=== PATIENT | female | born 1980 | race African-American/Black ===

== ENCOUNTER 2017-04-12 13:21 | Emergency (ER) | payer OTHER ==
[~2017-04-12] VITALS: Ht 162.6 cm; Wt 81.6 kg
--- NOTE | 2017-04-12 14:33 | PHYS DOC ---
Past Medical History Past Medical History: No Pertinent History Past Surgical History: Tubal ligation Alcohol Use: None Drug Use: None Adult General Chief Complaint Chief Complaint: ABDOMINAL PAIN HPI HPI Patient is a 36 year old female presents the ED complaining of lower abdominal cramping 2 days. Patient states she started her period 2 days ago. Complains of heavy bleeding. History of dysmenorrhea. States she recently had a tubal ligation a few months ago. Describes the pain as cramping. Rates the pain as 8 out of 10. Associated symptoms include one episode of vomiting. Denies weakness , dizziness, chest pain, shortness of breath, dizziness or syncope. Review of Systems Review of Systems Constitutional: Denies fever or chills [] Eyes: Denies change in visual acuity, redness, or eye pain [] HENT: Denies nasal congestion or sore throat [] Respiratory: Denies cough or shortness of breath [] Cardiovascular: No additional information not addressed in HPI [] GI: Complains of abdominal pain, nausea, vomiting. Denies bloody stools or diarrhea [] : Denies dysuria or hematuria [] Musculoskeletal: Denies back pain or joint pain [] Integument: Denies rash or skin lesions [] Neurologic: Denies headache, focal weakness or sensory changes [] Endocrine: Denies polyuria or polydipsia [] All other systems were reviewed and found to be within normal limits, except as documented in this note. Allergies Allergies Allergies Coded Allergies Type Severity Reaction Last Updated Verified No Known Drug Allergies 10/31/13 No Physical Exam Physical Exam Constitutional: Well developed, well nourished, no acute distress, non-toxic appearance. [] HENT: Normocephalic, atraumatic, bilateral external ears normal, oropharynx moist, no oral exudates, nose normal. [] Eyes: PERRLA, EOMI, conjunctiva normal, no discharge. [] Neck: Normal range of motion, no tenderness, supple, no stridor. [] Cardiovascular:Heart rate regular rhythm, no murmur [] Lungs & Thorax: Bilateral breath sounds clear to auscultation [] Abdomen: Bowel sounds normal, soft, MILD SUPRAPUBIC TENDERNESS. NO MURPHYS OR MCBURNEYS TENDERNESS. no masses, no pulsatile masses. [] Skin: Warm, dry, no erythema, no rash. [] Back: No tenderness, no CVA tenderness. [] Extremities: No tenderness, no cyanosis, no clubbing, ROM intact, no edema. [] Neurologic: Alert and oriented X 3, normal motor function, normal sensory function, no focal deficits noted. [] Psychologic: Affect normal, judgement normal, mood normal. [] Current Patient Data Vital Signs Vital Signs Date Time Temp Pulse Resp B/P (MAP) Pulse Ox O2 Delivery O2 Flow Rate FiO2 04/12/17 15:32 76 14 119/66 (83) 100 Room Air 04/12/17 13:30 97.9 97.9 Lab Values Laboratory Tests Test 04/12/17 13:10 04/12/17 13:39 04/12/17 14:31 Urine Collection Type Unknown Urine Color Dia Urine Clarity Clear Urine pH 6.0 Urine Specific [place] >=1.030 Urine Protein 30 mg/dL (NEG-TRACE) Urine Glucose (UA) Negative mg/dL (NEG) Urine Ketones (Stick) Negative mg/dL (NEG) Urine Blood Large (NEG) Urine Nitrite Negative (NEG) Urine Bilirubin Negative (NEG) Urine Urobilinogen Dipstick 0.2 mg/dL (0.2 mg/dL) Urine Leukocyte Esterase Negative (NEG) Urine RBC >40 /HPF (0-2) Urine WBC 1-4 /HPF (0-4) Urine Squamous Epithelial Cells Mod /LPF Urine Bacteria Moderate /HPF (0-FEW) Urine Mucus Mod /LPF POC Urine HCG, Qualitative Hcg negative (Negative) White Blood Count 4.9 x10^3/uL (4.0-11.0) Red Blood Count 4.59 x10^6/uL (3.50-5.40) Hemoglobin 13.1 g/dL (12.0-15.5) Hematocrit 40.0 % (36.0-47.0) Mean Corpuscular Volume 87 fL (79-100) Mean Corpuscular Hemoglobin 29 pg (25-35) Mean Corpuscular Hemoglobin Concent 33 g/dL (31-37) Red Cell Distribution Width 14.2 % (11.5-14.5) Platelet Count 269 x10^3/uL (140-400) Sodium Level 141 mmol/L (136-145) Potassium Level 4.0 mmol/L (3.5-5.1) Chloride Level 106 mmol/L (98-107) Carbon Dioxide Level 30 mmol/L (21-32) Anion Gap 5 (6-14) L Blood Urea Nitrogen 18 mg/dL (7-20) Creatinine 0.9 mg/dL (0.6-1.0) Estimated GFR (Cockcroft-Gault) 84.8 BUN/Creatinine Ratio 20 (6-20) Glucose Level 107 mg/dL (70-99) H Calcium Level 8.7 mg/dL (8.5-10.1) Total Bilirubin 0.3 mg/dL (0.2-1.0) Aspartate Amino Transferase (AST) 19 U/L (15-37) Alanine Aminotransferase (ALT) 19 U/L (14-59) Alkaline Phosphatase 92 U/L (46-116) Total Protein 7.3 g/dL (6.4-8.2) Albumin 3.4 g/dL (3.4-5.0) Albumin/Globulin Ratio 0.9 (1.0-1.7) L Laboratory Tests 04/12/17 14:31 Laboratory Tests 04/12/17 14:31 EKG EKG [] Radiology/Procedures Radiology/Procedures [] Course & Med Decision Making Course & Med Decision Making Pertinent Labs and Imaging studies reviewed. (See chart for details) []Discussed imaging and lab findings with patient. Patient's pain resolved. States she is feeling much better. On, Reexamination, abdomen is soft nontender nondistended. No peritoneal signs. States she has follow-up with her [employer] on Wednesday. Will prescribe analgesics. Discussed the importance of follow-up and reasons to return to the ED. Patient understands and agrees with plan. Dragon Disclaimer Dragon Disclaimer This electronic medical record was generated, in whole or in part, using a voice recognition dictation system. Departure Departure Impression: Primary Impression: Ovarian cyst Additional Impression: Dysmenorrhea Disposition: 01 HOME, SELF-CARE Condition: IMPROVED Referrals: XOCHITL EDWARDS MD (PCP) ANTONIO BECKER MD Patient Instructions: Dysmenorrhea, Ovarian Cyst Scripts Naproxen (NAPROSYN) 500 Mg Tablet 1 TAB PO BID, #20 TAB 1 Refill Prov: DIONNE VIERA 04/12/17 Hydrocodone/Apap 5-325 (NORCO 5-325 TABLET) 1 Each Tablet 1 TAB PO TID, #8 TAB Prov: DIONNE VIERA 04/12/17 Problem Qualifiers DIONNE VIERA Apr 12, 2017 14:33
[2017-04-12 14:35] LABS: BILIRUBIN,URINE NEGATIVE (NEG); GLUCOSE,URINE NEGATIVE (NEG); NITRITE,URINE NEGATIVE (NEG); PROTEIN,URINE 30 mg/dL (NEG-TRACE); UROBILINOGEN,URINE 0.2 mg/dL (0.2 mg/dL)
[2017-04-12 14:38] LABS: HEMOGLOBIN 13.1 g/dL (12.0-15.5); RED BLOOD COUNT 4.59 x10^6/uL (3.50-5.40); RED CELL DISTRIBUTION WIDTH 14.2 % (11.5-14.5); WHITE BLOOD COUNT 4.9 x10^3/uL (4.0-11.0)
[2017-04-12 14:48] LABS: BACTERIA,URINE MODERATE /HPF (0-FEW); RBC,URINE >40 /HPF (0-2); SQUAMOUS EPITHELIAL CELL,UR MOD /LPF
[2017-04-12 14:48] LABS: CALCIUM 8.7 mg/dL (8.5-10.1); CREATININE 0.9 mg/dL (0.6-1.0); GFR 84.8
[2017-04-12 14:54] LABS: ALBUMIN 3.4 g/dL (3.4-5.0); TOTAL PROTEIN 7.3 g/dL (6.4-8.2)
[2017-04-12 14:55] LABS: ALBUMIN/GLOBULIN RATIO 0.9 (1.0-1.7); TOTAL BILIRUBIN 0.3 mg/dL (0.2-1.0)
[2017-04-12 15:32] VITALS: BP 119/66
--- NOTE | 2017-04-12 16:15 | RAD ---
Indication: Pelvic pain. Technique: Transabdominal and transvaginal imaging was performed. No comparison is available. Findings: Uterus measures 8.4 x 4.7 x 5.6 cm in size. Endometrial stripe measures 7 mm. No uterine lesion is identified. Both ovaries are visualized with color flow and waveform documented. 13 mm complex cyst in the right ovary is noted. There is no free pelvic fluid. There are increased vessels within the pelvis bilaterally. Impression: 1. No evidence of adnexal torsion or mass. 2. Increased vascularity within the adnexa bilaterally, correlate with any concern for pelvic congestion.
[2017-04-12] MEDS ORDERED: NAPR500T PO (16:57)
[2017-04-12] MEDS ORDERED: HYDR-971 PO (16:57)
--- NOTE | 2017-04-15 12:05 | VNOTE ---
CALL BACK NOTE CALL BACK Microbiology 04/12/17 Urine Culture - Final, Complete 04/12/17 Urine Culture Result 1 (MORAIMA) - Final, Complete 04/12/17 Antimicrobic Susceptibility - Final, Complete Patient was notified at her home number [phone] she was provided the information that the urine was positive for urinary tract infection. She has requested that a prescription based cold to the [facility]. Bactrim DS was called. Recommended Bactrim DS one tablet twice a day 3 days with a total of 6 provided for her. No refills. REED YUN APRN Apr 15, 2017 12:05
== END 2017-04-12 17:03 | disposition home or self-care (01) ==
LOC: ER 13:21
DX: N83.201 Unspecified ovarian cyst, right side (principal); N94.6 Dysmenorrhea, unspecified
CPT/HCPCS: 36415; 76830; 76856; 80053; 81001; 81025; 85027; 87086; 99285-25

== ENCOUNTER 2017-06-21 11:55 | Emergency (ER) | payer OTHER ==
[2017-06-21 13:57] LABS: ADD MAN DIFF? NO
[2017-06-21] MEDS: fentaNYL PF VIAL 100 MCG/2 ML VIAL IV ×6 (13:57→17:16)
[2017-06-21] MEDS: ONDANSETRON PF 4 MG/2 ML VIAL. IV ×2 (13:57)
[2017-06-21] MEDS: IV NORMAL SALINE 1000ML BAG 1,000 ML IV ×2 (14:00)
[2017-06-21 14:02] LABS: BASO % 1 % (0-3); EOS % 1 % (0-3); HEMOGLOBIN 12.9 g/dL (12.0-15.5); LYMPH # 0.8 x10^3/uL (1.0-4.8); LYMPH % 11 % (24-48); MEAN CORPUSCULAR HEMOGLOBIN 29 pg (25-35); MEAN CORPUSCULAR HGB CONC 32 g/dL (31-37); MEAN CORPUSCULAR VOLUME 88 fL (79-100); MONO # 0.2 x10^3/uL (0.0-1.1); MONO % 3 % (0-9); NEUT # 6.2 x10^3uL (1.8-7.7); NEUT % 84 % (31-73); PLATELET COUNT 255 x10^3/uL (140-400); RED BLOOD COUNT 4.53 x10^6/uL (3.50-5.40); RED CELL DISTRIBUTION WIDTH 14.2 % (11.5-14.5); WHITE BLOOD COUNT 7.3 x10^3/uL (4.0-11.0)
[2017-06-21 14:19] LABS: ANION GAP 9 (6-14); BLOOD UREA NITROGEN 18 mg/dL (7-20); BUN/CREATININE RATIO 16 (6-20); CALCIUM 8.5 mg/dL (8.5-10.1); CARBON DIOXIDE 26 mmol/L (21-32); CHLORIDE 105 mmol/L (98-107); CREATININE 1.1 mg/dL (0.6-1.0); GFR 67.3; GLUCOSE 133 mg/dL (70-99); POTASSIUM 4.1 mmol/L (3.5-5.1); SODIUM 140 mmol/L (136-145)
[2017-06-21 14:25] LABS: ALBUMIN 3.6 g/dL (3.4-5.0); ALBUMIN/GLOBULIN RATIO 0.9 (1.0-1.7); ALK PHOS 65 U/L (46-116); ALT (SGPT) 20 U/L (14-59); AST (SGOT) 19 U/L (15-37); LIPASE 99 U/L (73-393); TOTAL BILIRUBIN 0.3 mg/dL (0.2-1.0); TOTAL PROTEIN 7.5 g/dL (6.4-8.2)
[2017-06-21 14:57] LABS: BILIRUBIN,URINE NEGATIVE (NEG); CLARITY,URINE CLEAR; COLOR,URINE YELLOW; GLUCOSE,URINE NEGATIVE (NEG); NITRITE,URINE NEGATIVE (NEG); PROTEIN,URINE 30 mg/dL (NEG-TRACE)
[2017-06-21 15:18] LABS: BACTERIA,URINE MODERATE /HPF (0-FEW); RBC,URINE TNTC /HPF (0-2); SQUAMOUS EPITHELIAL CELL,UR MOD /LPF
[2017-06-21] MEDS: KETOROLAC 30 MG/ML INJ. IV ×2 (17:50)
[2017-06-23 19:19] LABS: CHLAMYDIA PROBE Negative (Negative); GC PROBE Negative (Negative)
== END 2017-06-21 19:05 | disposition home or self-care (01) ==
LOC: ER 11:55
DX: N39.0 Urinary tract infection, site not specified (principal); N13.4 Hydroureter; Z98.51 Tubal ligation status
CPT/HCPCS: 36415; 74176; 80053; 81001; 83690; 85025; 87086; 87491; 87591; 96361; 96374; 96375; 96376; 99285-25; J1885; J2405; J3010; J7030; Q0111

== ENCOUNTER → 2017-08-02 | Outpatient (CLI) | payer OTHER ==
[2017-08-02] MEDS: FUROSEMIDE 40 MG/4 ML VIAL. IVP (12:02)
== END | disposition home or self-care (01) ==
LOC: US 09:07
DX: N13.1 Hydronephrosis with ureteral stricture, not elsewhere classified (principal); N13.4 Hydroureter
CPT/HCPCS: 78708; 96374; 96375; A9562; J1940

== ENCOUNTER 2019-03-16 23:26 | Emergency (ER) | payer OTHER ==
[~2019-03-16] VITALS: Ht 162.6 cm; Wt 85.3 kg
[~2019-03-16 23:26] MED LIST: CEPH-264 PO; HYDR-3164 PO; IBUP-1007 PO; NAPR-683 PO; ONDA4TAB10 SL
--- NOTE | 2019-03-16 23:59 | PHYS DOC ---
Past Medical History Past Medical History: No Pertinent History Past Surgical History: Tubal ligation Alcohol Use: None Drug Use: None Adult General Chief Complaint Chief Complaint: SHORTNESS OF BREATH HPI HPI 38-year-old female presents to the emergency department with complaints of shortness of breath. Patient states symptoms started about 2 days ago. She describes congestion, cough, green sputum production. She was concerned about some wheeze however on examination this appears to be more upper airway. Small evidence of stridor appreciated on exam. Patient denies any fevers. She is concerned that her airway is closing off however explained to her this is probably related to the irritation and stridor type feeling. Nothing makes symptoms worse nothing makes them better. Review of Systems Review of Systems Constitutional: Denies fever or chills [] Eyes: Denies change in visual acuity, redness, or eye pain [] HENT: Denies nasal congestion or sore throat [] Respiratory: Denies cough or shortness of breath [] Cardiovascular: No additional information not addressed in HPI [] GI: Denies abdominal pain, nausea, vomiting, bloody stools or diarrhea [] : Denies dysuria or hematuria [] Musculoskeletal: Denies back pain or joint pain [] Integument: Denies rash or skin lesions [] Neurologic: Denies headache, focal weakness or sensory changes [] Endocrine: Denies polyuria or polydipsia [] All other systems were reviewed and found to be within normal limits, except as documented in this note. Current Medications Current Medications Current Medications Medications (Trade) Dose Ordered Sig/Nely Start Time Stop Time Status Last Admin Dose Admin Dexamethasone Sodium Phosphate (Decadron) 10 mg 1X ONCE 03/17/19 00:00 03/17/19 00:01 DC 03/17/19 00:44 10 MG Epinephrine (S2 Racepinephrine) 0.5 ml 1X ONCE 03/17/19 00:00 03/17/19 00:01 DC 03/17/19 00:00 0.5 ML Lidocaine HCl (Viscous Lidocaine) 15 ml 1X ONCE 03/17/19 01:00 03/17/19 01:01 03/17/19 00:50 15 ML Allergies Allergies Allergies Coded Allergies Type Severity Reaction Last Updated Verified No Known Drug Allergies 10/31/13 No Physical Exam Physical Exam Constitutional: Well developed, well nourished, no acute distress, non-toxic appearance. [] HENT: Normocephalic, atraumatic, bilateral external ears normal, oropharynx moist, no oral exudates, nose normal. [] Eyes: PERRLA, EOMI, conjunctiva normal, no discharge. [] Neck: Normal range of motion, no tenderness, supple, no stridor. [] Cardiovascular:Heart rate regular rhythm, no murmur [] Lungs & Thorax: Bilateral breath sounds clear to auscultation [] Abdomen: Bowel sounds normal, soft, no tenderness, no masses, no pulsatile mass es. [] Skin: Warm, dry, no erythema, no rash. [] Back: No tenderness, no CVA tenderness. [] Extremities: No tenderness, no cyanosis, no clubbing, ROM intact, no edema. [] Neurologic: Alert and oriented X 3, normal motor function, normal sensory function, no focal deficits noted. [] Psychologic: Affect normal, judgement normal, mood normal. [] Current Patient Data Vital Signs Vital Signs Date Time Temp Pulse Resp B/P (MAP) Pulse Ox O2 Delivery O2 Flow Rate FiO2 03/16/19 23:35 99.1 84 18 100/56 (71) 98 Room Air 99.1 EKG EKG [] Radiology/Procedures Radiology/Procedures [facility] [address] [place] [address] IMAGING REPORT Signed PATIENT: CATE MCCRARY MACCOUNT: [id number] : 1980 LOCATION: ER AGE: 38 SEX: F EXAM STATUS: REG ER ORD. PHYSICIAN: VALENTINA BALTAZAR MD REASON: Shortness of breath PROCEDURE: CHEST AP ONLY Chest AP portable at 2357: Reason for examination: Short of breath. Comparison is made to previous study dated 12/17/2005. The heart size is normal. Mediastinum is unremarkable. Lung whitney are clear. No acute bony abnormalities are seen. Impression: No acute cardiopulmonary disease. Electronically signed by: Aparna Olsen MD (03/17/2019 12:16 AM) [facility] DICTATED and SIGNED BY: APARNA OLSEN MD DATE: 03/17/19 0016 [] Course & Med Decision Making Course & Med Decision Making Pertinent Labs and Imaging studies reviewed. (See chart for details) [] 38-year-old female presents to the emergency department with complaints of sh ortness of breath. Patient states symptoms started about 2 days ago. She describes congestion, cough, green sputum production. She was concerned about some wheeze however on examination this appears to be more upper airway. Small evidence of stridor appreciated on exam. Patient denies any fevers. She is concerned that her airway is closing off however explained to her this is proba sridevi related to the irritation and stridor type feeling. Nothing makes symptoms worse nothing makes them better. 10mg Decadron IM Racemic epinephrin 0.3 x 1 Patient improved after treatment Xray negative for acute process Plan dc home with decadron rx, follow up with PCP in 3 - 5 days Dragon Disclaimer Dragon Disclaimer This electronic medical record was generated, in whole or in part, using a voice recognition dictation system. Departure Departure Impression: Primary Impression: Shortness of breath Additional Impression: Sore throat (viral) Disposition: 01 HOME, SELF-CARE Condition: IMPROVED Referrals: XOCHITL EDWARDS MD (PCP) Patient Instructions: Shortness of Breath, [id number], Sore Throat, [id number] Scripts Dexamethasone (Decadron) 0.5 Mg/5 Ml Elixir 10 ML PO QID for 3 Days, #120 ML 0 Refills Prov: VALENTINA BALTAZAR MD 03/17/19 Problem Qualifiers VALENTINA BALTAZAR MD Mar 16, 2019 23:59
[2019-03-17] MEDS ORDERED: RACEPINEPHRINE 2.25% 0.5 ML NEBU. NEB ONE
[2019-03-17] MEDS ORDERED: DEXAMETHASONE SOD PHOS 20 MG/5 ML VIAL. IM ONE
[2019-03-17 00:17] VITALS: BP 100/58
--- NOTE | 2019-03-17 00:19 | RAD ---
Chest AP portable at 2357: Reason for examination: Short of breath. Comparison is made to previous study dated 12/17/2005. The heart size is normal. Mediastinum is unremarkable. Lung whitney are clear. No acute bony abnormalities are seen. Impression: No acute cardiopulmonary disease. Electronically signed by: Makayla Boyd MD (03/17/2019 12:16 AM) [facility]
[2019-03-17] MEDS ORDERED: DEXA0.5E7 PO (00:26)
[2019-03-17] MEDS ORDERED: LIDOCAINE 2% VISCOUS 15 ML SOLUTION. SWSW ONE (01:00)
== END 2019-03-17 01:11 | disposition home or self-care (01) ==
LOC: ER 23:26
DX: R06.02 Shortness of breath (principal); J02.8 Acute pharyngitis due to other specified organisms; B97.89 Other viral agents as the cause of diseases classified elsewhere; R05 Cough; R09.81 Nasal congestion; Z98.51 Tubal ligation status
CPT/HCPCS: 71045; 94640; 96372; 99283; J1100; 99284

== ENCOUNTER 2019-03-17 02:03 | Emergency (ER) | payer OTHER ==
[~2019-03-17] VITALS: Ht 162.6 cm; Wt 81.6 kg
[~2019-03-17 02:03] MED LIST changes: +DEXA0.5E7 PO
[2019-03-17 03:36] LABS: CREATININE 0.9 mg/dL (0.6-1.0); GFR 83.9
[2019-03-17] MEDS ORDERED: CONTRAST GIVEN. MC PRN (03:45)
[2019-03-17] MEDS ORDERED: IOHEXOL 300 MG/ML 100ML VIAL. IV ONE (03:45)
[2019-03-17 03:48] LABS: U PREG PATIENT NEGATIVE (NEG)
--- NOTE | 2019-03-17 05:02 | RAD ---
CT soft tissue neck with contrast: Reason for examination: Upper airway with mild stridor. Helical images were obtained through the neck with intravenous administration of 70 cc Omnipaque 300. Reconstruction was performed in sagittal and coronal planes. Exposure: One or more of the following individualized dose reduction techniques were utilized for this examination: 1. Automated exposure control 2. Adjustment of the mA and/or kV according to patient size 3. Use of iterative reconstruction technique. The paranasal sinuses show a small amount of fluid in the left maxillary antrum. Remaining paranasal sinuses are clear. Mastoid air cells are clear. No abnormalities of seen at the orbits. The zygomatic arches are intact. No abnormalities of seen at the parotid or submandibular glands. Muscular bundles appear symmetric. No gross vascular abnormalities are seen. No abnormality seen at the epiglottis. The vallecula and piriform sinuses are symmetric. Vocal cords are symmetric. No abnormality seen at the trachea or visualized portion of the esophagus. No tonsillar or retropharyngeal abscesses are seen. No acute abnormality seen in the cervical spine. Lung apices are clear. IMPRESSION: Small amount of fluid in the left maxillary antrum. No other focal abnormalities are evident in the neck. Electronically signed by: Makayla Boyd MD (03/17/2019 4:59 AM) [facility]
[2019-03-17] MEDS ORDERED: DEXAMETHASONE SOD PHOS 20 MG/5 ML VIAL. IM ONE (05:15)
[2019-03-17] MEDS ORDERED: RACEPINEPHRINE 2.25% 0.5 ML NEBU. NEB ONE (05:15)
--- NOTE | 2019-03-17 05:49 | PHYS DOC ---
Past Medical History Past Medical History: No Pertinent History Past Surgical History: Tubal ligation Alcohol Use: Occasionally Drug Use: Marijuana Adult General Chief Complaint Chief Complaint: SHORTNESS OF BREATH HPI HPI Patient was just seen about 40 min ago with same complaints. She states her throat is closing and she is unable to breath. Patient was given a racemic epi at that time as she had a mild stridor as well as decadron with decadron prescription for dc. Given her continued concern she presented to the ER again for similar complaints. Nothing makes her symptoms worse or better. She does have a component of anxiety associated with symptoms Review of Systems Review of Systems Constitutional: Denies fever or chills [] Eyes: Denies change in visual acuity, redness, or eye pain [] HENT: sore throat Respiratory: cough, sob Cardiovascular: No additional information not addressed in HPI [] GI: Denies abdominal pain, nausea, vomiting, bloody stools or diarrhea [] Musculoskeletal: Denies back pain or joint pain [] Neurologic: Denies headache, focal weakness or sensory changes [] All other systems were reviewed and found to be within normal limits, except as documented in this note. Current Medications Current Medications Current Medications Medications (Trade) Dose Ordered Sig/Nely Start Time Stop Time Status Last Admin Dose Admin Dexamethasone Sodium Phosphate (Decadron) 10 mg 1X ONCE 03/17/19 05:15 03/17/19 05:17 DC 03/17/19 05:17 10 MG Epinephrine (S2 Racepinephrine) 0.5 ml 1X ONCE 03/17/19 05:15 03/17/19 05:17 DC 03/17/19 05:15 0.5 ML Info (CONTRAST GIVEN -- Rx MONITORING) 1 each PRN DAILY PRN 03/17/19 03:45 03/17/19 10:07 DC Iohexol (Omnipaque 300 Mg/ml) 70 ml 1X ONCE 03/17/19 03:45 03/17/19 03:46 DC 03/17/19 04:10 70 ML Allergies Allergies Allergies Coded Allergies Type Severity Reaction Last Updated Verified No Known Drug Allergies 10/31/13 No Physical Exam Physical Exam Constitutional: Well developed, well nourished, mild distress/anxious, non-toxic appearance. [] HENT: Normocephalic, atraumatic, bilateral external ears normal, oropharynx moist, mild erythema however no swelling appreciated to posterior pharynx, no oral exudates, nose normal. [] Eyes: PERRLA, EOMI, conjunctiva normal, no discharge. [] Neck: Normal range of motion, no tenderness, supple, no stridor on exam currently. [] Cardiovascular:Heart rate regular rhythm, no murmur [] Lungs & Thorax: Bilateral breath sounds clear to auscultation [] Abdomen: Bowel sounds normal, soft, no tenderness, no masses, no pulsatile masses. [] Skin: Warm, dry, no erythema, no rash. [] Extremities: No tenderness, no edema. [] Neurologic: Alert and oriented X 3, no focal deficits noted. [] Psychologic: Affect normal, judgement normal, mood normal. [] Current Patient Data Vital Signs Vital Signs Date Time Temp Pulse Resp B/P (MAP) Pulse Ox O2 Delivery O2 Flow Rate FiO2 03/17/19 10:05 80 127/80 (96) 97 03/17/19 05:27 Room Air 03/17/19 02:32 99.0 17 99.0 Lab Values Laboratory Tests Test 03/17/19 03:20 03/17/19 03:24 Urine Test Negative (NEG) Creatinine 0.9 mg/dL (0.6-1.0) Estimated GFR (Cockcroft-Gault) 83.9 Laboratory Tests 03/17/19 03:24 EKG EKG [] Radiology/Procedures Radiology/Procedures [facility] [address] [place] [address] IMAGING REPORT Signed PATIENT: CATE MCCRARY MACCOUNT: [id number] : 1980 LOCATION: ER AGE: 38 SEX: F EXAM STATUS: REG ER ORD. PHYSICIAN: VALENTINA BALTAZAR MD REASON: Upper Airway with mild stridor PROCEDURE: CT SOFT TISSUE NECK W/CONTRAST CT soft tissue neck with contrast: Reason for examination: Upper airway with mild stridor. Helical images were obtained through the neck with intravenous administration of 70 cc Omnipaque 300. Reconstruction was performed in sagittal and coronal planes. Exposure: One or more of the following individualized dose reduction techniques were utilized for this examination: 1. Automated exposure control 2. Adjustment of the mA and/or kV according to patient size 3. Use of iterative reconstruction technique. The paranasal sinuses show a small amount of fluid in the left maxillary antrum. Remaining paranasal sinuses are clear. Mastoid air cells are clear. No abnormalities of seen at the orbits. The zygomatic arches are intact. No abnormalities of seen at the parotid or submandibular glands. Muscular bundles appear symmetric. No gross vascular abnormalities are seen. No abnormality seen at the epiglottis. The vallecula and piriform sinuses are symmetric. Vocal cords are symmetric. No abnormality seen at the trachea or visualized portion of the esophagus. No tonsillar or retropharyngeal abscesses are seen. No acute abnormality seen in the cervical spine. Lung apices are clear. IMPRESSION: Small amount of fluid in the left maxillary antrum. No other focal abnormalities are evident in the neck. Electronically signed by: Aparna Olsen MD (03/17/2019 4:59 AM) [facility] DICTATED and SIGNED BY: APARNA OLSEN MD DATE: 03/17/19 0459 [] Course & Med Decision Making Course & Med Decision Making Pertinent Labs and Imaging studies reviewed. (See chart for details) [] Patient was just seen about 40 min ago with same complaints. She states her throat is closing and she is unable to breath. Patient was given a racemic epi at that time as she had a mild stridor as well as decadron with decadron prescription for dc. Given her continued concern she presented to the ER again for similar complaints. Nothing makes her symptoms worse or better. She does have a component of anxiety associated with symptoms Racemic epi repeated as patient states it did help her upon her initial visit Repeat decadron provided IM CT of soft tissue of neck reviewed without evidence of acute process to account for SOB/throat feeling Discussed findings with patient She was observed for several hours in the ER and subsequently dc home with recommendations to follow up as an outpatient with her PCP [place] Disclaimer [place] Disclaimer This electronic medical record was generated, in whole or in part, using a voice recognition dictation system. Departure Departure Impression: Primary Impression: Sore throat (viral) Additional Impression: Shortness of breath Disposition: 01 HOME, SELF-CARE Condition: IMPROVED Referrals: XOCHITL EDWARDS MD (PCP) Patient Instructions: Shortness of Breath, [id number], Sore Throat, [id number], Stridor Additional Instructions: Recommend follow up with PCP 3 - 5 days Return to the ER with worsening symptoms, intractable pain, fever, altered mental status Tylenol/Motrin as needed for pain Take steroids as prescribed Problem Qualifiers VALENTINA BALTAZAR MD Mar 17, 2019 05:49
[2019-03-17 10:05] VITALS: BP 127/80
== END 2019-03-17 10:06 | disposition home or self-care (01) ==
LOC: ER 02:03
DX: J02.8 Acute pharyngitis due to other specified organisms (principal); B97.89 Other viral agents as the cause of diseases classified elsewhere; R06.02 Shortness of breath; Z98.51 Tubal ligation status
CPT/HCPCS: 36415; 70491; 81025; 82565; 94640; 96372; 99285; J1100; Q9967